=== PATIENT | male | born 1990 | race Caucasian/White ===

== ENCOUNTER → 2016-12-23 | Outpatient (CLI) | payer OTHER ==
--- NOTE | 2016-12-23 16:20 | REP ---
Whole body radionuclide bone scan: History: Bilateral leg pain. Question distal tibial lesion on the right. Comparison MRI study July 26, 2016. Comparison radiographs July 21, 2016. Technique: 20.3 mCi of technetium 99m MDP is injected and standard whole body bone scan imaging was acquired. Scintigraphic findings: There is a normal distribution of skeletal tracer with uptake in bilateral kidneys and in the urinary bladder. No abnormal bony skeletal uptake is seen including the ankle and distal tibial uptake. The lesion seen radiographically and by MRI scanning in the right distal tibia is not felt to be metabolically active. Impression: Negative whole body radionuclide bone scan. Signed by Alexis Ely MD 12/23/2016 04:53 P
== END ==
LOC: M RAD 10:42
PROVIDERS: ATTEND Physician Assistant
DX: M79.604 Pain in right leg (principal); M79.605 Pain in left leg

== ENCOUNTER → 2017-03-21 | Outpatient (REF) | payer OTHER | LOC: M LAB REF 13:31 | PROVIDERS: ATTEND Internal Medicine Medical Oncology | DX: C47.1 Malignant neoplasm of peripheral nerves of upper limb, including shoulder (principal) ==